=== PATIENT | female | born 1970 | race Two or more races ===

== ENCOUNTER 2018-04-06 16:44 | Emergency (ER) | payer MEDICAID, OTHER ==
[~2018-04-06] VITALS: Ht 167.6 cm; Wt 90.0 kg
[2018-04-06 17:09] VITALS: BP 132/85
[2018-04-06] MEDS ORDERED: FAMOTIDINE 20 MG TABLET PO ONE (17:30)
[2018-04-06] MEDS ORDERED: FAMOTIDINE 20 MG TABLET ONE (17:43)
== END 2018-04-06 18:23 | disposition home or self-care (01) ==
LOC: ED 18:17
DX: S60.561A Insect bite (nonvenomous) of right hand, initial encounter (principal); W57.XXXA Bitten or stung by nonvenomous insect and other nonvenomous arthropods, initial encounter; Y93.89 Activity, other specified; Y92.009 Unspecified place in unspecified non-institutional (private) residence as the place of occurrence of the external cause; Y99.8 Other external cause status
CPT/HCPCS: 99283; Q0177

== ENCOUNTER → 2021-01-06 | Outpatient (CLI) | payer MEDICAID, OTHER ==
[~2021-01-06] MED LIST: ACET325T14 PO; B CO1TAB14 PO; CHOL10003 PO; MV-M1TAB29 PO; POLY17PO5 PO
[2021-01-06 10:45] LABS: BASOPHILS % (AUTO) 0 % (0-1); EOSINOPHILS % (AUTO) 0 % (1-7); LYMPHOCYTES % (AUTO) 20 % (22-44); MEAN CORPUSCULAR HEMOGLOBIN 32.4 pg (27.0-34.8); MEAN CORPUSCULAR HGB CONC 34.5 g/dL (32.4-35.8); MEAN PLATELET VOLUME 9.6 fL (7.4-10.4); MONOCYTES % (AUTO) 5 % (2-9); NEUTROPHILS % (AUTO) 74 % (42-75); PLATELET COUNT 221 x10^3/uL (130-400); RED BLOOD COUNT 4.69 x10^6/uL (3.82-5.3); RED CELL DISTRIBUTION WIDTH 12.5 % (9.6-15.2)
[2021-01-06 10:47] LABS: MICROSCOPIC NOT IND
[2021-01-06 10:48] LABS: MD NO
== END | disposition home or self-care (01) ==
LOC: STAR 09:51
PROVIDERS: ATTEND Obstetrics & Gynecology
DX: Z01.812 Encounter for preprocedural laboratory examination (principal); Z20.822 Contact with and (suspected) exposure to COVID-19; N39.3 Stress incontinence (female) (male); N81.10 Cystocele, unspecified; Z78.0 Asymptomatic menopausal state
CPT/HCPCS: 36415; 81003; 84703; 85025; U0003

== ENCOUNTER 2021-01-10 06:53 | Day surgery (SDC) | payer OTHER ==
[~2021-01-10] VITALS: Ht 167.6 cm; Wt 92.7 kg
[2021-01-10] MEDS ORDERED: LACTATED RINGERS 1,000 ML IV SCH (07:30)
[2021-01-10] MEDS ORDERED: CHLORHEXIDINE 15 ML UDC PO ONE (07:30)
[2021-01-10] MEDS ORDERED: CHLORHEXIDINE 15 ML UDC ONE (07:36)
[2021-01-10 07:58] VITALS: BP 127/64
[2021-01-10 08:00] LABS: HCG UR SG 1.019 (1.003-1.030)
[2021-01-10] MEDS ORDERED: stool softener PO (08:04)
[2021-01-10] MEDS ORDERED: EPINEPHRINE 1 MG/ML, 1ML ONE (08:33)
[2021-01-10] MEDS ORDERED: ESTROGENS CONJUGATED VAG CRM 0.625MG/1G, 30GM ONE (08:33)
[2021-01-10] MEDS ORDERED: BUPIVACAINE/PF 0.25% ONE (08:33)
[2021-01-10] MEDS ORDERED: FENTANYL PF 250 MCG/5ML ONE (08:43)
[2021-01-10] MEDS ORDERED: MIDAZOLAM 1 MG/ML, 2ML ONE (08:43)
[2021-01-10] MEDS ORDERED: ONDANSETRON 2MG/ML, 2ML ONE (08:45)
[2021-01-10] MEDS ORDERED: PROPOFOL 10 MG/ML, 20ML ONE (08:45)
[2021-01-10] MEDS ORDERED: CEFAZOLIN 1,000 MG ONE (08:45)
[2021-01-10] MEDS ORDERED: PROPOFOL 150 ML ONE (08:45)
[2021-01-10] MEDS ORDERED: DEXAMETHASONE 4 MG/ML, 1ML ONE (08:52)
[2021-01-10] MEDS ORDERED: KETOROLAC 30 MG/1 ML ONE (08:52)
[2021-01-10] MEDS ORDERED: BUPIVACAINE/PF-EPI 0.25% 1:200K INFIL ONE (09:18)
[2021-01-10] MEDS ORDERED: LORazepam 2 MG/ML, 1ML IVPush PRN (10:00)
[2021-01-10] MEDS ORDERED: PROMETHAZINE 25 MG/ML, 1ML IVPush PRN (10:00)
[2021-01-10] MEDS ORDERED: ONDANSETRON 2MG/ML, 2ML IVPush PRN (10:00)
[2021-01-10] MEDS ORDERED: OXYcodone 5 MG/5 ML ORAL.SOL UDC PO PRN (10:00)
[2021-01-10] MEDS ORDERED: ACETAMINOPHEN 325 MG TABLET PO PRN (10:00)
[2021-01-10] MEDS ORDERED: PROMETHAZINE 25 MG SUPP PR PRN (10:00)
[2021-01-10] MEDS ORDERED: HYDROmorphone 1 MG/ML, 1ML INJ IVPush PRN (10:00)
[2021-01-10] MEDS ORDERED: METHOCARBAMOL 1,000 MG in DEXTROSE 5% 100 ML IV PRN (10:00)
[2021-01-10] MEDS ORDERED: FENTANYL PF 100 MCG/2ML IV PRN (10:00)
[2021-01-10] MEDS ORDERED: FENTANYL PF 100 MCG/2ML ONE (10:08)
[2021-01-10] MEDS ORDERED: OXYC1TAB14 PO (10:22)
[2021-01-10] MEDS ORDERED: DOCU-131 PO (10:22)
[2021-01-10] MEDS ORDERED: IBUP-1223 PO (10:22)
== END 2021-01-10 12:30 | disposition home or self-care (01) ==
LOC: OUT 06:53
PROVIDERS: ATTEND Obstetrics & Gynecology
DX: N39.3 Stress incontinence (female) (male) (principal); N81.11 Cystocele, midline; N81.6 Rectocele; N95.1 Menopausal and female climacteric states; I10 Essential (primary) hypertension; M19.90 Unspecified osteoarthritis, unspecified site; Z98.890 Other specified postprocedural states; Z90.710 Acquired absence of both cervix and uterus; Z90.49 Acquired absence of other specified parts of digestive tract; Z79.899 Other long term (current) drug therapy; Z85.41 Personal history of malignant neoplasm of cervix uteri
CPT/HCPCS: 57250; 57288; 81025; C1771; J0171; J0690; J1100; J1885; J2250; J2405; J2704; J3010; J7120

== ENCOUNTER 2021-04-16 21:37 | Emergency (ER) | payer OTHER ==
[~2021-04-16] VITALS: Ht 167.6 cm; Wt 95.7 kg
[~2021-04-16 21:37] MED LIST changes: +DOCU-131 PO; +IBUP-1223 PO; +OXYC1TAB14 PO; +stool softener PO
[2021-04-16] MEDS ORDERED: MORPHINE SULFATE 4 MG/ML, 1ML ONE (22:29)
[2021-04-16] MEDS ORDERED: ONDANSETRON 2MG/ML, 2ML ONE (22:30)
[2021-04-16] MEDS ORDERED: ONDANSETRON 2MG/ML, 2ML IVPush ONE (22:30)
[2021-04-16] MEDS ORDERED: MORPHINE SULFATE 4 MG/ML, 1ML IVPush ONE (22:30)
--- NOTE | 2021-04-16 22:49 | NUR ---
PATIENT UPDATED ON PLAN OF CARE. NO NOTED ADDITIONAL NEEDS AT THIS TIME. MEDICATED, TOLERATED WELL. VSS, CALL LIGHT WITHIN REACH, BED IN LOWEST LOCKED POSITION, SIDE RAILS X 1 UP. TOLERATING INTERVENTIONS WELL.
--- NOTE | 2021-04-16 22:57 | NUR ---
PATIENT RESTING IN BED, NO NOTED NEEDS AT THIS TIME. WILL CONTINUE TO MONITOR. VSS. CALL LIGHT WITHIN REACH, BED IN LOWEST LOCKED POSITION, SIDE RAILS X 2 UP.
[2021-04-16] MEDS ORDERED: MAALOX/HYOSCYAMINE/LIDOCAINE 45 ML BTL ONE (23:51)
[2021-04-16 23:54] VITALS: BP 141/74
[2021-04-17] MEDS ORDERED: MAALOX/HYOSCYAMINE/LIDOCAINE 45 ML BTL PO ONE
== END 2021-04-17 00:09 | disposition home or self-care (01) ==
LOC: ED 21:48
DX: N93.9 Abnormal uterine and vaginal bleeding, unspecified (principal)
CPT/HCPCS: 96374; 96375; 99284; J2270; J2405

== ENCOUNTER 2021-04-18 11:19 | Day surgery (SDC) | payer OTHER ==
[~2021-04-18] VITALS: Ht 167.6 cm; Wt 94.8 kg
[2021-04-18 12:20] LABS: HCG UR SG 1.012 (1.003-1.030)
[2021-04-18 12:23] VITALS: BP 119/80
[2021-04-18 12:30] VITALS: BP 119/80
[2021-04-18] MEDS ORDERED: CHLORHEXIDINE 15 ML UDC PO ONE (12:30)
[2021-04-18] MEDS ORDERED: LACTATED RINGERS 1,000 ML IV SCH (12:30)
[2021-04-18] MEDS ORDERED: MIDAZOLAM 1 MG/ML, 2ML ONE (12:32)
[2021-04-18] MEDS ORDERED: FENTANYL PF 250 MCG/5ML ONE (12:32)
[2021-04-18] MEDS ORDERED: DEXAMETHASONE 4 MG/ML, 1ML ONE (12:33)
[2021-04-18] MEDS ORDERED: ONDANSETRON 2MG/ML, 2ML ONE (12:33)
[2021-04-18] MEDS ORDERED: PROPOFOL 10 MG/ML, 20ML ONE (12:33)
[2021-04-18] MEDS ORDERED: CEFAZOLIN 1,000 MG ONE (12:33)
[2021-04-18] MEDS ORDERED: FLUORESCEIN SODIUM 500 MG/5 ML ONE (13:37)
[2021-04-18] MEDS ORDERED: BUPIVACAINE 0.25% ONE (13:37)
[2021-04-18] MEDS ORDERED: hydrALAzine 20 MG/ML, 1ML IV PRN (14:30)
[2021-04-18] MEDS ORDERED: morphine SULFATE 10 MG/ML, 1ML IVPush PRN (14:30)
[2021-04-18] MEDS ORDERED: HYDROmorphone 1 MG/ML, 1ML INJ IVPush PRN (14:30)
[2021-04-18] MEDS ORDERED: LABETALOL 5MG/ML, 20ML IV PRN (14:30)
[2021-04-18] MEDS ORDERED: OXYcodone 5 MG/5 ML ORAL.SOL UDC PO PRN (14:30)
[2021-04-18] MEDS ORDERED: FENTANYL PF 100 MCG/2ML IV PRN (14:30)
[2021-04-18] MEDS ORDERED: PROMETHAZINE 25 MG/ML, 1ML IVPush PRN (14:30)
[2021-04-18] MEDS ORDERED: ACETAMINOPHEN 325 MG TABLET PO PRN (14:30)
[2021-04-18] MEDS ORDERED: MEPERIDINE/PF 25MG/0.5ML IVPush PRN (14:30)
[2021-04-18] MEDS ORDERED: HALOPERIDOL 5 MG/ML IV PRN (14:30)
[2021-04-18] MEDS ORDERED: BUPIVACAINE/PF 0.25% INFIL ONE (14:54)
[2021-04-18] MEDS ORDERED: ACETAMINOPHEN 650 MG/20.3 ML UDC ONE (15:34)
== END 2021-04-18 16:50 | disposition home or self-care (01) ==
LOC: OUT 11:19
PROVIDERS: ATTEND Obstetrics & Gynecology
DX: T83.712A Erosion of implanted urethral mesh to surrounding organ or tissue, initial encounter (principal); I10 Essential (primary) hypertension; Z20.822 Contact with and (suspected) exposure to COVID-19; Z79.899 Other long term (current) drug therapy; Z98.890 Other specified postprocedural states; Y83.8 Other surgical procedures as the cause of abnormal reaction of the patient, or of later complication, without mention of misadventure at the time of the procedure
CPT/HCPCS: 57287; 81025; 87635; J0690; J1100; J2250; J2405; J2704; J3010; J7120